=== PATIENT | female | born 1940 | race Caucasian/White ===

== ENCOUNTER 2022-12-01 13:11 | Outpatient (REF) | payer MEDICARE, SELFPAY ==
[2022-12-01 14:59] LABS: Vitamin B12 220 pg/mL (200-900)
== END 2022-12-01 13:12 | disposition home or self-care (01) ==
LOC: HO.LAB 13:11
PROVIDERS: Visit Provider Psychiatry & Neurology Neurology
DX: G30.9 Alzheimer's disease, unspecified (principal)
CPT/HCPCS: 36415; 82607